=== PATIENT | male | born 1950 | race Caucasian/White ===

== ENCOUNTER 2016-12-07 12:09 | Emergency (ER) | payer MEDICARE ==
[~2016-12-07] VITALS: Ht 180.3 cm; Wt 86.2 kg
--- NOTE | ~2016-12-07 | CT4 ---
[facility]. [facility] A Service of [facility] RADIOLOGY TEXT RESULTS PATIENT: EVI VASQUEZ LOCATION: SED : 48 UNIT #: [id number] AGE: [address]: Tomi Ontiveros MD SEX: M ORDER DR: [id number] [address] [address] [id number] MR#: [id number] Acc #: [id number] NAME: EVI VASQUEZ : 1950 SEX: M STUDY DATE/TIME: UNIT: SED ROOM: STUDY DESCRIPTION: CT Abd and Pelv Wo Cont Attending Physician: Tomi Ontiveros M.D. Ordering Physician: Tomi Ontiveros M.D. Primary Care Physician: Primary Care Physician No MEDICAL IMAGING REPORT This report is preliminary unless electronic signature is present. EXAM CT abdomen and pelvis without contrast 12/07/2016 1234 hours HISTORY Left flank pain since early this morning. Prior history of kidney stones. Prior appendectomy. COMPARISON CT abdomen and pelvis 11/23/2008 TECHNIQUE Helical noncontrasted images were obtained from the lung bases through the pubic symphysis without oral or intravenous contrast. Sagittal and coronal reconstructions were performed. Total exam DLP 1147 mGy - cm. This CT exam was performed with one or more of the following radiation dose reduction techniques: automatic exposure control, adjustment of mA and/or kV according to patient size, and iterative reconstruction. FINDINGS Images through the lung bases demonstrate a stable calcified granulomatous change. There is no acute pulmonary density or pleural effusion. Images through the abdomen without contrast demonstrate a normal appearance to the liver, spleen, pancreas and bile ducts. The gallbladder is somewhat contracted. No gallstones are seen. The adrenal glands are normal. The right kidney demonstrates no mass, stone or distension. Previous right sided renal stone is no longer seen. The left kidney demonstrates very mild pelvocaliectasis which is new. There is a 5 mm stone at the left ureterovesical junction best seen on series 2 image 81. The distal left ureter is normal. The bladder is normal. There are radiopaque densities seen at the prostate which could [facility] Service of [facility] & [facility] [place] [place] RADIOLOGY TEXT RESULTS PATIENT: EVI VASQUEZ LOCATION: SED : 48 UNIT #: [id number] AGE: [address]: Tomi Ontiveros MD SEX: M ORDER DR: represent radiation seed implants. The stomach and small bowel appear normal. The appendix is surgically absent. There are colonic diverticula at the descending colon and sigmoid colon without CT evidence of diverticulitis. IMPRESSION 1. There is a 5 mm left ureteral pelvic junction stone resulting in mild pelvocaliectasis. No definite intrarenal stones are seen on either kidney. 2. Diverticulosis of the descending colon and sigmoid colon without evidence of diverticulitis. Dictated by... Diane Mcginnis M.D. THIS IS AN ELECTRONICALLY VERIFIED REPORT Diane Mcginnis M.D. at 12/08/2016 8:53 AM RINA/xiomy TD: 12/07/2016 19:18 JOB #: [id number] MEDICAL IMAGING REPORT Page 1 of 1
[2016-12-07] MEDS ORDERED: METOPROLOL SUCC25 MG (12:16)
[2016-12-07] MEDS ORDERED: LIPITOR40 MG (12:16)
[2016-12-07 12:51] LABS: BASOPHIL# 0.1 X10e3 (0-0.3); EOSINOPHIL# 0.1 X10e3 (0-0.7); HEMATOCRIT 45.2 % (38.0-50.0); HEMOGLOBIN 15.4 gm/dL (13.0-16.0); LYMPHOCYTE# 1.4 X10e3 (1.0-3.5); MEAN CELL VOLUME 87.9 FL (83-96); MEAN CORPUSCULAR HGB CONC 34.2 g/dL (30-36); MEAN PLATELET VOLUME 9.8 FL (6.5-11.5); MONOCYTE# 0.6 X10e3 (0-1.0); MONOCYTE% 6.4 % (3.0-12.0); NEUTROPHIL# 7.8 X10e3 (1.5-7.1); NEUTROPHIL% 77.6 % (40-75); PLATELET COUNT 209 X10e3 (140-420); RED BLOOD COUNT 5.14 X10e (3.90-5.60); RED CELL DISTRIBUTION WIDTH 14.4 % (11.0-15.5)
[2016-12-07 12:52] LABS: DIFF IND NO
[2016-12-07 13:07] LABS: BUN/CREATININE RATIO 15.55; CALCIUM SERUM 9.1 mg/dL (8.4-10.2); CREATININE SERUM 0.9 mg/dL (0.6-1.4); GLOM FILT RATE Estimated 88.1 mL/min (>60); POTASSIUM 3.6 mmol/L (3.5-5.1)
[2016-12-07 15:05] LABS: URINE SOURCE CLEAN CATCH
[2016-12-07 15:08] LABS: MICRO INDICATED? YES; URINE APPEARANCE CLEAR; URINE BILIRUBIN NEG (NEG); URINE BLOOD 3+ (NEG); URINE COLOR YELLOW; URINE GLUCOSE NEG (NORM); URINE KETONE TRACE (NEG); URINE LEUKOCYTE ESTERASE NEG (NEG); URINE NITRATE NEG (NEG); URINE PH 5.5 (5-8); URINE PROTEIN NEG (NEG); URINE SPECIFIC GRAVITY 1.025 (1.003-1.035); URINE UROBILINOGEN 0.2 MG/DL (NORM)
[2016-12-07 15:24] LABS: CULTURE INDICATED? NO; URINE BACTERIA NEG (NEG); URINE RBC 50-100 /[HPF] (0-2); URINE WBC 0-2 /[HPF] (0-5); URINE YEAST PRESENT
== END 2016-12-07 15:52 | disposition home or self-care (01) ==
LOC: SED 12:09
PROVIDERS: Emergency Medicine
DX: N20.1 Calculus of ureter (principal); Z87.442 Personal history of urinary calculi; I10 Essential (primary) hypertension; Z95.1 Presence of aortocoronary bypass graft; F17.200 Nicotine dependence, unspecified, uncomplicated
CPT/HCPCS: 36415; 74176; 80048; 81003; 85025; 96361; 96374; 96375; 96376; 99284; J1170; J1885; J2405